=== PATIENT | female | born 1985 | race Caucasian/White ===

== ENCOUNTER 2018-03-15 21:18 | Emergency (ER) | payer OTHER ==
--- NOTE | 2018-03-15 21:29 | EDPHY ---
H & P Stated Complaint: Pain to right toes after hiking in snow today Time Seen by Provider: 03/15/18 21:28 HPI/ROS: HPI: This is a 32-year-old female who presents with Chief Complaint: Pain to right toes after hiking in snow today Location: Right toes Quality: Pain Duration: Today Signs and Symptoms: No bleeding, no radiation, + numbness, no weakness, + tingling, no incontinence, no decreased range of motion, no swelling, + pain, no fever Timing: Gradual onset Severity: Moderate Context: Patient reports that she hiked today approximately 6 hr and developed pain primary in her right 2nd toe she is attributing to frostbite. She forgot to wear her Gators to hike and her feet became cold and wet. She reports that she arrived home and jumped into a hot shower. She felt immediate, constant, severe pain. She reports that after several hours she still has pain and tingling in her right 2nd toe. She denies any current skin color changes. No history of diabetes mellitus. Modifying Factors: See above Comment: ROS: A comprehensive 10 system review of systems is otherwise negative aside from elements mentioned in the history of present illness. MEDICAL/SURGICAL/SOCIAL HISTORY: Medical history: Hypothyroidism. IUD in place. Surgical history: Denies Social history: Never smoked. Employed. CONSTITUTIONAL: Well-developed, well-nourished polite and cooperative adult white female, awake and alert, no obvious distress HEENT: Atraumatic and normocephalic. NECK: supple Cardiovascular: Normal S1/S2, regular rate, regular rhythm, without murmur rub or gallop. PULMONARY/CHEST: Symmetrical and nontender. Clear to auscultation bilaterally. Good air movement. No accessory muscle usage. ABDOMEN: Soft, nondistended, nontender. EXTREMITIES: 2/2 dorsalis pedis and pedis tibialis pulses, strength 5/5, right 2nd toe shows tenderness with palpation but no erythema, swelling, skin breakdown. DIP/PIP/MTP flexion/extension intact with good light touch sensation. no deformities, no clubbing, no cyanosis or edema. NEUROLOGICAL: no focal neuro deficits. GCS 15. Light touch sensation intact. SKIN: Warm and dry, no erythema. no rash. Good capillary refill. Source: Patient Exam Limitations: No limitations - Personal History LMP (Females 10-55): IUD In Place Current Tetanus Diphtheria and Acellular Pertussis (TDAP): Yes - Medical/Surgical History Hx Asthma: No Hx Chronic Respiratory Disease: No Hx Diabetes: No Hx Cardiac Disease: No Hx Renal Disease: No Hx Cirrhosis: No Hx Alcoholism: No Hx HIV/AIDS: No Hx Splenectomy or Spleen Trauma: No Other PMH: hypothyroidism - Social History Smoking Status: Never smoked Constitutional: Initial Vital Signs Temperature (C) 36.3 C 03/15/18 21:22 Heart Rate 85 03/15/18 21:22 Respiratory Rate 16 03/15/18 21:22 Blood Pressure 108/68 03/15/18 21:22 O2 Sat (%) 97 03/15/18 21:22 O2 Delivery Mode Room Air Allergies/Adverse Reactions: No Known Allergies Allergy (Unverified 04/24/10 05:16) Home Medications: Medication Instructions Recorded Control Pill 1 tab PO DAILY 04/24/10 Gabapentin [Neurontin 100 MG (*)] 100 mg PO HS #5 cap 03/15/18 Levothyroxine 03/15/18 Medical Decision Making ED Course/Re-evaluation: Vital signs reviewed and stable upon arrival. Strong pedal pulses with good capillary refill. Superficial frostbite suspected. Written and verbal wound care instructions provided. I did give a prescription for gabapentin to take at night for the next few days. No signs of neurovascular compromise/tenting of skin/compartment syndrome/ extremities and joints examined above and below area of concern and are neurovascularly intact/cellulitis/gouty arthropathy/gangrene. This patient was seen under the supervision of my secondary supervising physician. I evaluated care for this patient independently. Discussed this patient with Dr. Segura who did not see the patient. Differential Diagnosis: Differential diagnosis includes but is not limited to peripheral vascular disease, superficial frostbite, severe frostbite, osteomyelitis, gangrene, cellulitis. Departure - Departure Disposition: Home, Routine, Self-Care Clinical Impression: Superficial frostbite of toe of right foot Qualifiers: Encounter type: initial encounter Qualified Code(s): T33.831A - Superficial frostbite of right toe(s), initial encounter Condition: Good Instructions: Frostbite (ED) Additional Instructions: Take Tylenol 650 mg every 4 hours and/or Ibuprofen 600 mg every 8 hours with food as needed for pain. Use Gabapentin at night as needed for nerve pain. Return to the ER immediately if you experience new or worsening pain, discoloration, numbness, tingling, or any other symptoms that concern you. Referrals: CLAUDIO CHATTERJEE [Other] - 3-4 days, if not improved Prescriptions: Gabapentin [Neurontin 100 MG (*)] 100 mg PO HS #5 cap
[2018-03-15] MEDS ORDERED: GABAPENTIN 100 MG CAP PO ONE (21:36)
[2018-03-15 21:42] VITALS: BP 112/71
== END 2018-03-15 21:43 | disposition home or self-care (01) ==
DX: T33.831A Superficial frostbite of right toe(s), initial encounter (principal); X31.XXXA Exposure to excessive natural cold, initial encounter; Y99.9 Unspecified external cause status; Y93.01 Activity, walking, marching and hiking